=== PATIENT | male | born 2000 | race Caucasian/White ===

== ENCOUNTER 2023-05-18 01:27 | Emergency (ER) | payer SELFPAY ==
[~2023-05-18] VITALS: Ht 180.3 cm; Wt 100.0 kg
[2023-05-18 01:39] VITALS: BP 150/79; O2SAT 97
[2023-05-18] MEDS ORDERED: LIDOCAINE HCL/EPINEPHRINE 1%-EPI 1:100,000 20 ML VIAL INFIL ONE (07:15)
[2023-05-18 09:12] VITALS: PULSE 94; RESP 18; TEMP 98.1
== END 2023-05-18 09:15 | disposition home or self-care (01) ==
LOC: ER 01:27
DX: S01.81XA Laceration without foreign body of other part of head, initial encounter (principal); W25.XXXA Contact with sharp glass, initial encounter; Y93.89 Activity, other specified; Y92.89 Other specified places as the place of occurrence of the external cause; Y99.8 Other external cause status
CPT/HCPCS: 12014; 99282; J3490; Z7610

== ENCOUNTER 2023-05-25 10:06 | Emergency (ER) | payer SELFPAY ==
[~2023-05-25] VITALS: Ht 175.3 cm; Wt 97.0 kg
[2023-05-25 10:12] VITALS: O2SAT 99
[2023-05-25 13:43] VITALS: BP 128/82; PULSE 70; RESP 20; TEMP 98.1
== END 2023-05-25 13:44 | disposition home or self-care (01) ==
LOC: ER 10:06
DX: S01.81XD Laceration without foreign body of other part of head, subsequent encounter (principal); Z48.02 Encounter for removal of sutures; X58.XXXD Exposure to other specified factors, subsequent encounter
CPT/HCPCS: 99281; Z7610 ×3